=== PATIENT | male | born 1940 | race American Indian/Alaskan Native ===

== ENCOUNTER 2016-10-11 10:13 | Day surgery (SDC) | payer MEDICARE ==
[2016-10-10 07:59] VITALS: BMI 35.1
[2016-10-11 11:30] LABS: INR 1.28 (0.93-1.08); PARTIAL THROMBOPLASTIN TIME 28.7 Seconds (23.7-30.8)
[2016-10-11 11:37] VITALS: RESP 18
[2016-10-11] MEDS ORDERED: Iohexol 350mgl/ml 50 ML ONE (11:45)
[2016-10-11] MEDS ORDERED: Iohexol 350 MG/100 ML VIAL ONE (11:45)
[2016-10-11] MEDS ORDERED: Lidocaine 2% Inj (20ml) ONE (11:45)
[2016-10-11 11:46] LABS: ADD MANUAL DIFF? NO
[2016-10-11 12:00] LABS: CALCIUM 9.4 mg/dL (8.4-10.5); POTASSIUM 4.3 mmol/L (3.6-5.0)
[2016-10-11 12:11] LABS: BASO # 0.08 K/mm3 (0.0-2.0); BASO % 1.2 % (0.0-3.0); EOS # 0.2 (0.0-0.7); EOS % 3.4 % (1.5-5.0); GRAN # 3.74 (1.4-6.5); GRAN % 55.6 % (50.0-68.0); HEMATOCRIT 34.2 % (42.0-52.0); LYMPH # 2.2 (1.2-3.4); LYMPH % 33.1 % (22.0-35.0); MEAN CELL VOLUME 87.9 fL (80.0-105.0); MEAN CORPUSCULAR HEMOGLOBIN 27.8 pg (25.0-35.0); MEAN CORPUSCULAR HGB CONC 31.6 g/dl (31.0-37.0); MEAN PLATELET VOLUME 10.4 fl (7.0-11.0); MONO # 0.5 (0.1-0.6); MONO % 6.7 % (1.0-6.0); PLATELET COUNT 203 10^3/uL (120.0-450.0); RED CELL DISTRIBUTION WIDTH 16.6 % (11.5-14.5); WHITE BLOOD COUNT 6.7 10^3/ul (4.5-11.0)
[2016-10-11] MEDS ORDERED: Midazolam 2 MG/2 ML VIAL ONE (12:18)
[2016-10-11] MEDS ORDERED: Iodixanol 320 mg/ml 150 ml Bottle IV ONE (12:21)
[2016-10-11] MEDS ORDERED: Iodixanol 320 MG/ML 100 ML BOTTLE IV ONE (12:25)
[2016-10-11] MEDS ORDERED: Sodium Chloride 0.45% 1,000 ML IV SCH (12:45)
[2016-10-11 14:10] VITALS: TEMP 98.2
[2016-10-11 15:14] VITALS: PULSE 68
[2016-10-11 15:15] VITALS: BP 137/72; O2SAT 98
--- NOTE | 2016-10-15 13:42 | CARD ---
APPROVED REPORT Procedure(s) performed: Left Heart Catheterization Complete Heart Catheterization Left Ventriculogram HISTORY 7 days), most recent EF: 60%. (EF Method: RADIONUCLIDE), previous diagnostic cath, tobacco history() : The patient is a former smoker , previous PCI (The PCI date was 06/09/2011), hypertension , dyslipidemia . INDICATION The indication(s) include : positive stress test. CASE TECHNIQUE The patient was brought electively to the Cardiac Catheterization Laboratory in a fasting state and was prepped and draped in a sterile manner. The was infiltrated with 2% Lidocaine subcutaneous without difficulty. Coronary angiography was performed using coronary diagnostic catheters. The left coronary system was accessed and visualized with a Diagnostic catheter. The right coronary system was accessed and visualized with a Diagnostic catheter. The left ventricle was accessed and visualized with a Diagnostic catheter. Left ventricular/Aortic Valve gradient assessed on pullback. Left ventriculogram was performed in KNOWLES projection. Closure device was deployed with a 6 Fr Angio-Seal without any complications. Vessel Analysis The patient's coronary anatomy is right dominant. The left main coronary artery is a medium size vessel without significant stenosis. The left main bifurcates to the left anterior descending and circumflex. The left anterior descending artery is a medium size vessel . There is a 70% stenosis in the mid segment. The circumflex artery is a medium size vessel with intimal irregularities. The right coronary artery is a medium size vessel . There is a 30% stenosis in the mid segment. Left Ventricle The left ventricle is normal in size with mild decreased contractility. The left ventricular ejection fraction is estimated to be 40%. Conclusion one vessel CAD. Mild depressed left ventricular function. Recommendations Aggressive Medical Therapy Weight Loss Reduction ProgramMedical Therapy Possable PCI of LAD.
== END 2016-10-11 17:20 | disposition home or self-care (01) ==
LOC: CATH 10:13
PROVIDERS: ATTEND Internal Medicine Cardiovascular Disease
DX: I25.119 Atherosclerotic heart disease of native coronary artery with unspecified angina pectoris (principal); I10 Essential (primary) hypertension; I38 Endocarditis, valve unspecified; I50.9 Heart failure, unspecified; E78.5 Hyperlipidemia, unspecified; Z98.61 Coronary angioplasty status; I25.2 Old myocardial infarction; Z87.891 Personal history of nicotine dependence; R94.39 Abnormal result of other cardiovascular function study
CPT/HCPCS: 36415; 80048; 80061; 85025; 85610; 85730; 86850; 86900; 93458; 99152; C1760; C1769; C1887 ×2; C2629; J1644; J2250; J3010; J7030; J7040; Q9967

== ENCOUNTER 2016-11-08 07:33 | Day surgery (SDC) | payer MEDICARE ==
[2016-10-10 07:59] VITALS: BMI 35.1
[2016-11-08 08:10] LABS: ADD MANUAL DIFF? NO
[2016-11-08 08:13] LABS: BASO # 0.07 K/mm3 (0.0-2.0); BASO % 1.1 % (0.0-3.0); EOS # 0.2 (0.0-0.7); EOS % 3.7 % (1.5-5.0); GRAN # 3.38 (1.4-6.5); HEMATOCRIT 28.6 % (42.0-52.0); LYMPH # 2.3 (1.2-3.4); LYMPH % 35.4 % (22.0-35.0); MEAN CELL VOLUME 88.8 fL (80.0-105.0); MEAN CORPUSCULAR HEMOGLOBIN 28.6 pg (25.0-35.0); MEAN CORPUSCULAR HGB CONC 32.2 g/dl (31.0-37.0); MEAN PLATELET VOLUME 9.2 fl (7.0-11.0); MONO # 0.5 (0.1-0.6); MONO % 7.8 % (1.0-6.0); PLATELET COUNT 215 10^3/uL (120.0-450.0); RED CELL DISTRIBUTION WIDTH 17.2 % (11.5-14.5); WHITE BLOOD COUNT 6.5 10^3/ul (4.5-11.0)
[2016-11-08 08:24] LABS: CALCIUM 9.1 mg/dL (8.4-10.5); INR 1.09 (0.93-1.08); PARTIAL THROMBOPLASTIN TIME 29.4 Seconds (23.7-30.8); POTASSIUM 4.3 mmol/L (3.6-5.0)
[2016-11-08] MEDS ORDERED: Lidocaine 2% Inj (20ml) ONE (09:45)
[2016-11-08] MEDS ORDERED: Iodixanol 320 mg/ml 150 ml Bottle IV ONE (09:46)
[2016-11-08] MEDS ORDERED: Iohexol 350mgl/ml 50 ML ONE (09:46)
[2016-11-08] MEDS ORDERED: Nitroglycerin 50mg in D5W 0 MG/0 ML BOTTLE IV ONE (09:46)
[2016-11-08] MEDS ORDERED: Midazolam 2 MG/2 ML VIAL ONE (10:23)
[2016-11-08] MEDS ORDERED: Adenosine 90 mg/30mL IV ONE (10:49)
[2016-11-08 11:29] VITALS: TEMP 97.3
[2016-11-08] MEDS ORDERED: Sodium Chloride 0.45% 1,000 ML IV SCH (11:30)
[2016-11-08 13:10] VITALS: O2SAT 99
[2016-11-08 14:05] VITALS: RESP 18
[2016-11-08 14:39] VITALS: BP 143/73; PULSE 68
--- NOTE | 2016-11-27 12:34 | CARD ---
APPROVED REPORT Procedure(s) performed: Selective Left Coronary Angiography FFR of the LAD HISTORY 40%. (EF Method: LVG), previous CHF, previous diagnostic cath, tobacco history() : The patient is a former smoker , previous PCI (The PCI date was 06/09/2011), hypertension , dyslipidemia . INDICATION The indication(s) include : positive stress test, stable angina (Silent NE(no time period)), dyspnea. CASE TECHNIQUE The patient was brought electively to the Cardiac Catheterization Laboratory in a fasting state and was prepped and draped in a sterile manner. The was infiltrated with 2% Lidocaine subcutaneous without difficulty. Coronary angiography was performed using coronary diagnostic catheters. The left coronary system was accessed and visualized with a Guided catheter. Closure device was deployed with a 6 Fr Angio-Seal without any complications. Vessel Analysis The patient's coronary anatomy is right dominant. The left main coronary artery is a large size vessel with intimal irregularities. The left main trifurcates to the left anterior descending, circumflex, and ramus. The left anterior descending artery is a medium size vessel . There is a 70% stenosis in the mid segment. The circumflex artery is a small size vessel . There is a 30% stenosis in the mid segment. PCI Technique Lesion Anticoagulation was achieved with Heparin. Percutaneous coronary intervention was performed on the mid left anterior descending artery segment. COMMENTS FFR of lad was performed and was .85 Conclusion Intermediate lession of the LAD. FFR of LAD of .85, not signifiant by FFR. Recommendations Aggressive Medical Therapy Weight Loss Reduction ProgramMedical Therapy
== END 2016-11-08 16:45 | disposition home or self-care (01) ==
LOC: CATH 07:33
PROVIDERS: ATTEND Internal Medicine Cardiovascular Disease
DX: I25.10 Atherosclerotic heart disease of native coronary artery without angina pectoris (principal); E78.5 Hyperlipidemia, unspecified; I10 Essential (primary) hypertension; Z87.891 Personal history of nicotine dependence
CPT/HCPCS: 36415; 80048; 80061; 85025; 85175; 85610; 85730; 86850; 86900; 93454; 93571; 99152; C1760; C1769 ×2; C1887; C2629; J0153; J1644 ×2; J2250; J3010; J7030; J7040; Q9967

== ENCOUNTER 2016-12-06 07:40 | Day surgery (SDC) | payer MEDICARE ==
[2016-10-10 07:59] VITALS: BMI 35.1
[2016-12-06 08:13] LABS: BASO # 0.09 K/mm3 (0.0-2.0); BASO % 1.4 % (0.0-3.0); EOS # 0.3 (0.0-0.7); EOS % 4.5 % (1.5-5.0); GRAN # 2.79 (1.4-6.5); GRAN % 44.6 % (50.0-68.0); HEMOGLOBIN 9.3 gm/dL (14.0-18.0); LYMPH # 2.6 (1.2-3.4); MEAN CELL VOLUME 91.2 fL (80.0-105.0); MEAN CORPUSCULAR HEMOGLOBIN 27.4 pg (25.0-35.0); MEAN PLATELET VOLUME 9.8 fl (7.0-11.0); MONO # 0.5 (0.1-0.6); MONO % 8.5 % (1.0-6.0); PLATELET COUNT 208 10^3/uL (120.0-450.0); RED CELL DISTRIBUTION WIDTH 16.9 % (11.5-14.5); WHITE BLOOD COUNT 6.3 10^3/ul (4.5-11.0)
[2016-12-06 08:20] LABS: CALCIUM 8.9 mg/dL (8.4-10.5)
[2016-12-06 08:22] LABS: PARTIAL THROMBOPLASTIN TIME 26.3 Seconds (23.7-30.8); PROTHROMBIN TIME 10.8 Seconds (9.9-11.8)
[2016-12-06] MEDS ORDERED: Iodixanol 320 mg/ml 150 ml Bottle IV ONE (10:18)
[2016-12-06] MEDS ORDERED: Iodixanol 320 MG/ML 200 ML BOTTLE IV ONE (10:18)
[2016-12-06] MEDS ORDERED: Lidocaine 2% Inj (20ml) ONE (10:18)
[2016-12-06] MEDS ORDERED: Midazolam 2 MG/2 ML VIAL ONE (11:12)
[2016-12-06] MEDS ORDERED: Sodium Chloride 0.45% 1,000 ML IV SCH (11:45)
[2016-12-06 12:58] VITALS: TEMP 98.1
[2016-12-06 14:06] VITALS: O2SAT 100
[2016-12-06 16:30] VITALS: BP 128/70; PULSE 67; RESP 17
--- NOTE | 2016-12-30 10:09 | VAS ---
DATE: 12/06/2016 SURGEON: Dr. Francisco Javier Bridges. INDICATIONS: Claudication and peripheral vascular disease. PROCEDURE: After informed consent, the patient was prepped and draped in usual fashion. Instilled lidocaine in the left femoral artery for local anesthesia. Using cook needle left femoral artery was entered. A 5-Turkish sheath was placed using Seldinger technique. The patient received mild sedation. Using a Omniflex catheter that was taken to the abdominal aorta, sequential PSA films in different angulations were taken from the abdominal aorta to the toes. The patient tolerated the procedure well. Manual pressure was used for hemostasis. RESULTS: 1. Abdominal aorta free of any aneurysm. 2. Right renal artery was patent. 3. Right iliac artery had mild disease. 4. Right femoral artery was free of any significant disease. 5. Left SFA had mild disease. 6. Right popliteal was patent. 7. There was one vessel runoff. 8. Left renal artery was patent. 9. Left iliac was patent. 10. Left femoral artery was patent. 11. Left superficial femoral artery was patent with mild disease. 12. Left popliteal was patent. 13. Runoff was 1 vessel. CONCLUSION: 1. Mild peripheral artery disease as described. 2. Severe tibial disease as described. Francisco Javier Bridges MD cc: Sukhwinder Massey MD MTDD
== END 2016-12-06 16:30 | disposition home or self-care (01) ==
LOC: SDSVAS 07:40
PROVIDERS: ATTEND Internal Medicine Cardiovascular Disease
DX: I73.9 Peripheral vascular disease, unspecified (principal)
CPT/HCPCS: 36200; 36415; 75630; 80048; 80061; 85025; 85610; 85730; 86850; 86900; 99152; C1760; C1769; C1887; C1894; J1644; J2250; J7030